=== PATIENT | female | born 1985 | race Caucasian/White ===

== ENCOUNTER 2019-06-14 13:40 | Emergency (ER) | payer OTHER ==
[~2019-06-14] VITALS: Ht 154.9 cm; Wt 89.8 kg
== END 2019-06-14 18:02 | disposition home or self-care (01) ==
LOC: ER 13:40
DX: K29.70 Gastritis, unspecified, without bleeding (principal)

== ENCOUNTER → 2020-01-04 | Outpatient (CLI) | payer OTHER ==
[~2020-01-04] MED LIST: PRENATAL TABLE1 EAC1 PO
== END | disposition home or self-care (01) ==
LOC: PRENATAL 08:30
PROVIDERS: ATTEND Obstetrics & Gynecology
DX: O26.843 Uterine size-date discrepancy, third trimester (principal); O36.8131 Decreased fetal movements, third trimester, fetus 1; O35.0XX1 Maternal care for (suspected) central nervous system malformation in fetus, fetus 1

== ENCOUNTER 2020-01-06 06:22 | Inpatient (IN) | payer OTHER ==
[~2020-01-06] VITALS: Ht 154.9 cm; Wt 98.0 kg
[2020-01-06] MEDS ORDERED: PRENATAL TABLE1 EAC1 PO (06:36)
== END 2020-01-08 16:44 | DRG 807 ==
LOC: LDR 06:22 → SURG-SUITE 19:02
PROVIDERS: ADMIT Obstetrics & Gynecology; ATTEND Obstetrics & Gynecology
PROC: 10E0XZZ Delivery of Products of Conception, External Approach (ICD-10-PCS; principal; 2020-01-06)
PROC: 4A1HXFZ Monitoring of Products of Conception, Cardiac Rhythm, External Approach (ICD-10-PCS; 2020-01-06)
DX: O80 Encounter for full-term uncomplicated delivery (principal); Z37.0 Single live birth; Z3A.38 38 weeks gestation of pregnancy

== ENCOUNTER → 2023-04-03 | Day surgery (SDC) | payer OTHER ==
[~2023-04-03] MED LIST changes: +SYNTHROID200 MCG PO
== END | disposition home or self-care (01) ==
LOC: ADM 03-28 08:45 → CIR.AMB 09:41
PROVIDERS: ATTEND Obstetrics & Gynecology
DX: N92.1 Excessive and frequent menstruation with irregular cycle (principal); N84.0 Polyp of corpus uteri; Z20.822 Contact with and (suspected) exposure to COVID-19